=== PATIENT | male | born 1955 | race Caucasian/White ===

== ENCOUNTER 2016-11-22 06:55 | Emergency (ER) | payer MEDICAID ==
[2016-11-22 07:07] VITALS: TEMP 99; O2SAT 96
--- NOTE | 2016-11-22 07:21 | EDPHY ---
H & P Time Seen by Provider: 11/22/16 07:15 HPI/ROS: Chief complaint. Abdominal pain, diarrhea HPI. 61-year-old male presents to emergency department with nausea that began last night. No vomiting. Diarrhea x2 this morning. No blood. Maybe some chills last night but no fever. Some low abdominal cramping. No radiation of the discomfort. Possible bad food exposure yesterday. No recent antibiotics or foreign travel ROS Constitutional. Chills Eyes. no problems with vision ENT. no sore throat, no nasal drainage Cardiovascular. no chest pain Respiratory. no shortness of breath, no cough Abdominal. Low abdominal cramping with nausea and diarrhea . no problems urinating MS. no calf pain/swelling, no neck/back pain, no joint pain Skin. no rash Lymph. no swollen glands Neuro. no headache, no dizziness, no difficulty walking or with speech Past Medical/Surgical History: Migraines Social History: Single, nonsmoker, no alcohol Smoking Status: Former smoker Physical Exam: General Appearance: Alert well-developed male mild distress vital signs stable with a heart rate 108 Eyes: Pupils equal and round no pallor or injection. ENT, Mouth: Mucous membranes are moist. Respiratory: There are no retractions, lungs are clear to auscultation. Cardiovascular: Regular rate and rhythm. Gastrointestinal: Abdomen is soft with minimal bilateral low abdominal tenderness. Normal bowel sounds. No masses Neurological: Awake and alert, sensory and motor exams grossly normal. Skin: Warm and dry, no rashes. Musculoskeletal: Neck is supple nontender. Extremities symmetrical, full range of motion. Psychiatric: Patient is oriented X 3, there is no agitation. Constitutional: Initial Vital Signs Temperature (C) 37.2 C 11/22/16 07:00 Heart Rate 108 H 11/22/16 07:00 Respiratory Rate 18 11/22/16 07:00 Blood Pressure 127/76 H 11/22/16 07:00 O2 Sat (%) 96 11/22/16 07:00 O2 Delivery Mode Room Air Allergies/Adverse Reactions: Penicillins Allergy (Severe, Verified 11/22/16 07:04) throat closes off Home Medications: Medication Instructions Recorded NK [No Known Home Meds] 11/22/16 Medical Decision Making Procedures: IV normal saline with target of 2 L. Zofran for nausea. Loperamide for low abdominal cramping. ED Course/Re-evaluation: Patient is had another episode of diarrhea in the emergency department. He is given 1 hydrocodone and 1 Cipro in attempt to better control his diarrhea Re-evaluation 9:30 a.m.. Patient is stable and improved. No further diarrhea. Patient and I discussed laboratory evaluation, treatment plan including criteria for return importance of follow-up and further evaluation. He expresses understanding and agreement Differential Diagnosis: I considered dehydration, electrolyte abnormality, other causes of acute abdomen. This would appear to be a gastroenteritis type presentation of diarrhea - Data Points Laboratory Results: Laboratory Results 11/22/16 07:35 11/22/16 07:35 Sodium 142 mEq/L (134-144) Potassium 4.5 mEq/L (3.5-5.2) Chloride 105 mEq/L (97-110) Carbon Dioxide 23 mEq/l (22-31) Anion Gap 14 mEq/L (8-16) BUN 35 H mg/dL (7-23) Creatinine 1.0 mg/dL (0.7-1.3) Estimated GFR > 60 Glucose 99 mg/dL (70-100) Calcium 8.8 mg/dL (8.5-10.4) Medications Given: Discontinued Medications Acetaminophen/Hydrocodone Bitart ([place] 5/325) 1 tab PO EDNOW ONE Stop: 11/22/16 08:08 Last Admin: 11/22/16 08:20 Dose: 1 tab Ciprofloxacin (Cipro) 500 mg PO EDNOW ONE PRN Reason: Protocol Stop: 11/22/16 08:08 Last Admin: 11/22/16 08:20 Dose: 500 mg Sodium Chloride (Ns) 1,000 mls @ 0 mls/hr IV ONCE ONE PRN Reason: Wide Open Stop: 11/22/16 07:32 Last Admin: 11/22/16 07:45 Dose: 1,000 mls Sodium Chloride (Ns) 1,000 mls @ 0 mls/hr IV ONCE ONE PRN Reason: Wide Open Stop: 11/22/16 07:32 Last Admin: 11/22/16 08:15 Dose: 1,000 mls Loperamide HCl (Imodium) 4 mg PO EDNOW ONE Stop: 11/22/16 07:32 Last Admin: 11/22/16 07:45 Dose: 4 mg Ondansetron HCl (Zofran) 4 mg IVP EDNOW ONE Stop: 11/22/16 07:32 Last Admin: 11/22/16 07:45 Dose: 4 mg Departure - Departure Disposition: Home, Routine, Self-Care Clinical Impression: Diarrhea Qualifiers: Diarrhea type: presumed infectious Qualifier Code: (A09) Infectious gastroenteritis and colitis, unspecified Condition: Good Instructions: Loperamide (By mouth), Acute Diarrhea (ED) Additional Instructions: Water and Gatorade to stay hydrated. Loperamide (Imodium) as needed for diarrhea. Return for worsening symptoms. Recheck in 1 day if not improving Referrals: [place],. [Primary Care Provider] - As per Instructions [facility] [Outside] - 1 day, if not improved
[2016-11-22] MEDS ORDERED: ONDANSETRON 4 MG/2 ML VIAL IVP ONE (07:31)
[2016-11-22] MEDS ORDERED: LOPERAMIDE HCL 2 MG CAP PO ONE (07:31)
[2016-11-22] MEDS ORDERED: NS 1,000 ML IV ONE ×2 (07:31)
[2016-11-22] MEDS ORDERED: HYDROCODONE/APAP 5/325 TAB PO ONE (08:07)
[2016-11-22] MEDS ORDERED: CIPROFLOXACIN 500 MG TAB PO ONE (08:07)
[2016-11-22 08:10] LABS: ANION GAP 14 mEq/L (8-16); CALCIUM 8.8 mg/dL (8.5-10.4); CARBON DIOXIDE 23 mEq/l (22-31); CHLORIDE 105 mEq/L (97-110); GLOMERULAR FILTRATION RATE > 60; GLUCOSE 99 mg/dL (70-100); POTASSIUM 4.5 mEq/L (3.5-5.2); SODIUM 142 mEq/L (134-144)
[2016-11-22 09:41] VITALS: BP 139/86; PULSE 90; RESP 16
== END 2016-11-22 09:49 | disposition home or self-care (01) ==
DX: A09 Infectious gastroenteritis and colitis, unspecified (principal); Z87.891 Personal history of nicotine dependence
CPT/HCPCS: 96374; J2405

== ENCOUNTER 2016-11-24 17:17 | Emergency (ER) | payer MEDICAID ==
[~2016-11-24 17:17] MED LIST: LOPERAMIDE HCL 2 MG CAP PO SCH
[2016-11-24 17:26] VITALS: RESP 16
[2016-11-24] MEDS ORDERED: KETOROLAC 30 MG/1 ML SDV IVP ONE (17:47)
[2016-11-24] MEDS ORDERED: NS 1,000 ML IV ONE ×2 (17:47)
[2016-11-24] MEDS ORDERED: LOPERAMIDE HCL 2 MG CAP PO ONE (17:48)
--- NOTE | 2016-11-24 17:50 | EDPHY ---
H & P Stated Complaint: ongoing diarrhea x several days, seen here 11/22 for same c/o Time Seen by Provider: 11/24/16 17:35 HPI/ROS: CHIEF COMPLAINT: Diarrhea HISTORY OF PRESENT ILLNESS: Patient is a 61-year-old homeless man who comes to the emergency department complaining abdominal cramping and diarrhea. He has had the symptoms for 3 days. He was seen here on Wednesday morning for the same and treated with Imodium, hydration and Zofran as well as a single dose of Cipro. He states that he felt better for about a day but then his symptoms returned. He suspicious of some meat loaf that he ate at [employer] on Wednesday night. He has not had a fever. He has not traveled outside of the [facility]. He has not been drinking from any unfiltered water. He has not had any antibiotics recently other than the single dose of Cipro. He denies abdominal pain. He denies blood in his stool. No vomiting. REVIEW OF SYSTEMS: Constitutional: denies: chills, fever, recent illness, recent injury EENTM: denies: blurred vision, double vision, nose congestion Respiratory: denies: cough, shortness of breath Cardiac: denies: chest pain, irregular heart rate, lightheadedness, palpitations Gastrointestinal/Abdominal: Cramping, diarrhea, see HPI Genitourinary: denies: dysuria, frequency, hematuria, pain Musculoskeletal: denies: joint pain, muscle pain Skin: denies: lesions, rash, jaundice, bruising Neurological: denies: headache, numbness, paresthesia, tingling, dizziness, weakness Hematologic/Lymphatic: denies: blood clots, easy bleeding, easy bruising Immunologic/allergic: denies: HIV/AIDS, transplant EXAM: GENERAL: Well-appearing, well-nourished and in no acute distress. HEAD: Atraumatic, normocephalic. EYES: Pupils equal round and reactive to light, extraocular movements intact, sclera anicteric, conjunctiva are normal. ENT: TMs normal, nares patent, oropharynx clear without exudates. Moist mucous membranes. NECK: Normal range of motion, supple without lymphadenopathy or JVD. LUNGS: Breath sounds clear to auscultation bilaterally and equal. No wheezes rales or rhonchi. HEART: Regular rate and rhythm without murmurs, rubs or gallops. ABDOMEN: Soft, nontender, normoactive bowel sounds. No guarding, no rebound. No masses appreciated. BACK: No CVA tenderness, no spinal tenderness, step-offs or deformities EXTREMITIES: Normal range of motion, no pitting or edema. No clubbing or cyanosis. NEUROLOGICAL: Cranial nerves II through XII grossly intact. Normal speech, normal gait. 5/5 strength, normal movement in all extremities, normal sensation PSYCH: Normal mood, normal affect. SKIN: Warm, dry, normal turgor, no visible rashes or lesions. Source: Patient Exam Limitations: No limitations - Personal History Current Tetanus/Diphtheria Vaccine: Yes Current Tetanus Diphtheria and Acellular Pertussis (TDAP): Yes Tetanus Vaccine Date: 2015 - Medical/Surgical History Hx Asthma: No Hx Chronic Respiratory Disease: No Hx Diabetes: No Hx Cardiac Disease: No Hx Renal Disease: No Hx Cirrhosis: No Hx Alcoholism: Yes Hx HIV/AIDS: No Hx Splenectomy or Spleen Trauma: No Other PMH: migraine - Family History Significant Family History: Hypertension - Social History Smoking Status: Former smoker Alcohol Use: Sober Drug Use: None Constitutional: Initial Vital Signs Temperature (C) 36.5 C 11/24/16 17:21 Heart Rate 80 11/24/16 17:21 Respiratory Rate 16 11/24/16 17:21 Blood Pressure 147/96 H 11/24/16 17:21 O2 Sat (%) 96 11/24/16 17:21 O2 Delivery Mode Room Air Allergies/Adverse Reactions: Penicillins Allergy (Severe, Verified 11/24/16 17:21) throat closes off Home Medications: Medication Instructions Recorded Loperamide HCl [Imodium A-D] 2 mg PO Q4-6PRN PRN #14 tablet 11/24/16 Medical Decision Making - Diagnostics EKG Interpretation: An EKG obtained and was read and documented in trace view. Please see trace view for full reading and report. Sinus rhythm, no visible acute ischemic changes, type typically difficult ED Course/Re-evaluation: 7:10 p.m. the patient is feeling much better. He is less cramping. He has not had another episode of diarrhea. He is currently being hydrated. His abdominal exam remains benign. 8:50 p.m. the patient has not had any more episodes of diarrhea. He still has occasional cramping. I suggested we continue him on Imodium since this seems to work well for him. He is agree with this plan. He has not yet been able to provide a stool sample. He would like to go home. He has urinated several times and has been well hydrated. He declines further workup or testing at this time. We discussed indications for returning. Differential Diagnosis: Partial list of the Differential diagnosis considered include but were not limited to; invasive diarrhea, infectious diarrhea, C difficile, dehydration, food poisoning and although unlikely based on the history and physical exam, I also considered appendicitis, diverticulitis, peptic ulcer disease. I discussed these differential diagnoses and the plan with the patient as well as the usual and expected course. The patient understands that the diagnosis is provisional and that in medicine we are not always correct and that further workup is often warranted. Usual and customary warnings were given. All of the patient's questions were answered. The patient was instructed to return to the emergency department should the symptoms at all worsen or return, otherwise to followup with the physician as we discussed. - Data Points Laboratory Results: Laboratory Results 11/24/16 18:13 11/24/16 18:13 Medications Given: Discontinued Medications Sodium Chloride (Ns) 1,000 mls @ 0 mls/hr IV ONCE ONE PRN Reason: Wide Open Stop: 11/24/16 17:48 Last Admin: 11/24/16 18:10 Dose: 1,000 mls Sodium Chloride (Ns) 1,000 mls @ 0 mls/hr IV ONCE ONE PRN Reason: Wide Open Stop: 11/24/16 17:48 Last Admin: 11/24/16 18:10 Dose: 1,000 mls Ketorolac Tromethamine (Toradol) 30 mg IVP EDNOW ONE Stop: 11/24/16 17:48 Last Admin: 11/24/16 18:10 Dose: 30 mg Loperamide HCl (Imodium) 4 mg PO EDNOW ONE Stop: 11/24/16 17:49 Last Admin: 11/24/16 18:08 Dose: 4 mg Departure - Departure Disposition: Home, Routine, Self-Care Clinical Impression: Diarrhea Qualifiers: Diarrhea type: unspecified type Qualifier Code: (R19.7) Diarrhea, unspecified Condition: Fair Instructions: Acute Diarrhea (ED) Referrals: IN STATE,. [Primary Care Provider] - As per Instructions [facility] [Outside] - As per Instructions Prescriptions: Loperamide HCl [Imodium A-D] 2 mg PO Q4-6PRN PRN #14 tablet PRN Reason: Diarrhea/Loose Stools
[2016-11-24 18:20] LABS: % IMMATURE GRANULYOCYTES 0.2 % (0.0-1.1); ABSOLUTE IMMATURE GRANULOCYTES 0.01 10^3/uL (0.00-0.10); ADD DIFF? NO; ADD MORPH? NO; ADD SCAN? NO; ATYPICAL LYMPHOCYTE FLAG 40 (0-99); FRAGMENT RBC FLAG 0 (0-99); HEMATOCRIT 42.8 % (40.0-51.0); HEMOGLOBIN 14.7 g/dL (13.7-17.5); LEFT SHIFT FLG 0 (0-99); LIPEMIA HEMOLYSIS FLAG 90 (0-99); MEAN CELL HEMOGLOBIN 29.5 pg (27.9-34.1); MEAN CELL HEMOGLOBIN CONCENTR. 34.3 g/dL (32.4-36.7); MEAN CELL VOLUME 85.8 fL (81.5-99.8); MEAN PLATELET VOLUME 9.5 fL (8.7-11.7); PLATELET CLUMPS FLAG 0 (0-99); PLATELET COUNT 198 10^3/uL (150-400); RED BLOOD CELL COUNT 4.99 10^6/uL (4.40-6.38); RED CELL DISTRIBUTION WIDTH 13.2 % (11.5-15.2)
[2016-11-24 18:43] LABS: ALANINE AMINOTRANSFERASE 42 IU/L (21-72); ALBUMIN 4.2 g/dL (3.5-5.0); ALKALINE PHOSPHATASE 65 IU/L (38-126); ANION GAP 10 mEq/L (8-16); ASPARTATE AMINOTRANSFERASE 31 IU/L (17-59); BILIRUBIN,TOTAL 0.6 mg/dL (0.1-1.4); BILIRUBIN-CONJUGATED 0.3 mg/dL (0.0-0.5); BILIRUBIN-UNCONJUGATED 0.3 mg/dL (0.0-1.1); CALCIUM 8.7 mg/dL (8.5-10.4); CARBON DIOXIDE 27 mEq/l (22-31); CHLORIDE 100 mEq/L (97-110); GLOMERULAR FILTRATION RATE > 60; GLUCOSE 89 mg/dL (70-100); POTASSIUM 3.8 mEq/L (3.5-5.2); SODIUM 137 mEq/L (134-144)
[2016-11-24 19:38] LABS: COLOR COLORLESS; LEUKOCYTE ESTERASE,URINE NEGATIVE (NEGATIVE); NITRITE,URINE NEGATIVE (NEGATIVE)
[2016-11-24] MEDS ORDERED: BENZTROPINE MESYLATE 2 MG/2 ML INJ IVP ONE (19:53)
[2016-11-24 22:25] VITALS: BP 134/92; PULSE 68; TEMP 98.1; O2SAT 97
== END 2016-11-24 22:23 | disposition home or self-care (01) ==
DX: R19.7 Diarrhea, unspecified (principal); Z87.891 Personal history of nicotine dependence
CPT/HCPCS: 96374; J0515; J1885

== ENCOUNTER 2016-12-12 08:25 | Emergency (ER) | payer MEDICAID ==
[2016-12-12 08:47] VITALS: RESP 16
[2016-12-12] MEDS ORDERED: IBUPROFEN 600 MG TAB PO ONE (09:04)
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
--- NOTE | 2016-12-12 09:31 | DX ---
Right Hand - 3 views Indication: Trauma. Pain. Technique: AP, oblique, and lateral views. Comparison: None Findings: The bones are anatomically aligned. No acute fracture. Joint spaces are well preserved. Impression: Negative. No acute fracture.
[2016-12-12 09:41] VITALS: BP 143/100; PULSE 72; TEMP 97.7; O2SAT 95
== END 2016-12-12 09:41 | disposition home or self-care (01) ==
DX: S60.221A Contusion of right hand, initial encounter (principal); Z87.891 Personal history of nicotine dependence; V17.4XXA Pedal cycle driver injured in collision with fixed or stationary object in traffic accident, initial encounter; Y92.410 Unspecified street and highway as the place of occurrence of the external cause; Y93.55 Activity, bike riding

== ENCOUNTER 2017-03-17 20:51 | Emergency (ER) | payer MEDICAID ==
[2017-03-17 21:03] VITALS: TEMP 97.7
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
[2017-03-17] MEDS ORDERED: IBUPROFEN 600 MG TAB PO ONE (21:42)
[2017-03-17 21:53] VITALS: BP 138/90; PULSE 72; RESP 16; O2SAT 96
== END 2017-03-17 21:53 | disposition home or self-care (01) ==
DX: S80.01XA Contusion of right knee, initial encounter (principal); Z87.891 Personal history of nicotine dependence; V18.0XXA Pedal cycle driver injured in noncollision transport accident in nontraffic accident, initial encounter; Y92.410 Unspecified street and highway as the place of occurrence of the external cause; Y99.8 Other external cause status; Y93.89 Activity, other specified

== ENCOUNTER → 2017-07-15 | Outpatient (CLI) | payer MEDICAID | LOC: FIMAGING 16:16 | PROVIDERS: ATTEND Nurse Practitioner Family | DX: Z11.1 Encounter for screening for respiratory tuberculosis (principal) ==

== ENCOUNTER 2017-10-21 13:44 | Emergency (ER) | payer MEDICAID ==
[2017-10-21 13:52] VITALS: BP 136/95; PULSE 97; RESP 18; TEMP 97.3; O2SAT 97
== END 2017-10-21 14:50 | disposition left against medical advice (07) ==
DX: Z53.21 Procedure and treatment not carried out due to patient leaving prior to being seen by health care provider (principal)

== ENCOUNTER 2018-01-31 16:30 | Emergency (ER) | payer MEDICAID ==
[2018-01-31] MEDS ORDERED: METOCLOPRAMIDE 10 MG/2 ML VIAL IVP ONE (17:07)
[2018-01-31] MEDS ORDERED: NS 1,000 ML IV ONE (17:07)
[2018-01-31] MEDS ORDERED: DEXAMETHASONE 10 MG/ML VIAL IVP ONE (17:07)
[2018-01-31] MEDS ORDERED: KETOROLAC 30 MG/1 ML SDV IVP ONE (17:07)
[2018-01-31] MEDS ORDERED: ENALAPRIL MALEATE 5 MG TAB PO ONE (17:09)
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
[2018-01-31 17:19] LABS: PLATELET COUNT 210 10^3/uL (150-400)
[2018-01-31 17:31] LABS: INR 1.01 (0.83-1.16); PROTIME(PATIENT) 13.5 SEC (12.0-15.0)
[2018-01-31 20:00] VITALS: BP 160/100; PULSE 69; RESP 16; TEMP 98.2; O2SAT 95
== END 2018-01-31 19:58 | disposition home or self-care (01) ==
DX: G43.109 Migraine with aura, not intractable, without status migrainosus (principal); I10 Essential (primary) hypertension; E86.9 Volume depletion, unspecified; Z87.891 Personal history of nicotine dependence
CPT/HCPCS: 96374; J1100; J1200; J1885; J2765

== ENCOUNTER 2018-09-10 19:26 | Emergency (ER) | payer MEDICAID ==
[2018-09-10 19:32] VITALS: BP 158/102
--- NOTE | 2018-09-10 19:51 | EDPHY ---
H & P Time Seen by Provider: 09/10/18 19:43 HPI/ROS: CHIEF COMPLAINT: Left thumb laceration HISTORY OF PRESENT ILLNESS: 63-year-old male here with left thumb laceration. States that just prior to arrival he was cutting vegetables at home and accidentally slipped and cut himself in the left thumb with new knife. His tetanus is up-to-date. Does not take any blood thinners. Denies any numbness or loss of range of motion of the thumb. He had difficulty controlling the bleeding at home so came to the ER. ROS As detailed in HPI Smoking Status: Former smoker Physical Exam: General: Alert and oriented. Nontoxic appearing. No acute distress HEENT: Pupils PERRLA. No oral lesions. Cardiopulmonary: Regular rate and rhythm. No lower extremity edema Skin: [place] warm and dry. 2 cm skin flap over the lateral aspect of the distal phalanx of the left thumb. No joint involvement. Neurovascular intact distal to the laceration. Muscle skeletal: Moving all 4 extremities. Equal strength in upper extremities and lower extremities. Ambulatory. Constitutional: Initial Vital Signs Temperature (C) 36.6 C 09/10/18 19:29 Heart Rate 75 09/10/18 19:29 Respiratory Rate 16 09/10/18 19:29 Blood Pressure 158/102 H 09/10/18 19:29 O2 Sat (%) 97 09/10/18 19:29 O2 Delivery Mode Room Air Allergies/Adverse Reactions: Penicillins Allergy (Severe, Verified 09/10/18 19:28) throat closes off Home Medications: Medication Instructions Recorded NK [No Known Home Meds] 09/10/18 Medical Decision Making Procedures: Procedure: Laceration repair. Verbal consent was obtained from the patient. The 2 cm thumb laceration on the lateral aspect of the distal phalanx of the left thumb was anesthetized in the usual fashion. The wound was irrigated, draped and explored to its base. There were no deep structures involved. No tendon injury was identified. The wound was repaired with Dermabond. The wound repair was without complication. The procedure was performed by myself. Differential Diagnosis: Tendon involvement, joint involvement, uncontrolled bleeding, foreign body Departure - Departure Disposition: Home, Routine, Self-Care Clinical Impression: Thumb laceration Condition: Good Instructions: Skin Adhesive Care (ED) Referrals: NONE *PRIMARY CARE P,. [Primary Care Provider] - As per Instructions
== END 2018-09-10 20:26 | disposition home or self-care (01) ==
PROC: 0HQFXZZ Repair Right Hand Skin, External Approach (ICD-10-PCS; principal; 2018-09-10)
DX: S61.011A Laceration without foreign body of right thumb without damage to nail, initial encounter (principal); W26.0XXA Contact with knife, initial encounter; Y93.G1 Activity, food preparation and clean up; Y92.019 Unspecified place in single-family (private) house as the place of occurrence of the external cause; Z87.891 Personal history of nicotine dependence; Z88.0 Allergy status to penicillin